=== PATIENT | female | born 1975 ===

== ENCOUNTER 2019-08-05 18:48 | Emergency (ER) | payer OTHER ==
[~2019-08-05] VITALS: Ht 152.4 cm; Wt 77.1 kg
[2019-08-05] MEDS ORDERED: Artificial Tear15 ML RIGHTEYE (21:24)
== END 2019-08-05 21:34 | disposition home or self-care (01) ==
LOC: ER 18:48
DX: H11.31 Conjunctival hemorrhage, right eye (principal)
CPT/HCPCS: 99282

== ENCOUNTER 2020-07-21 15:20 | Emergency (ER) | payer OTHER ==
[~2020-07-21] VITALS: Ht 165.1 cm; Wt 79.4 kg
[~2020-07-21 15:20] MED LIST: Artificial Tear15 ML RIGHTEYE
== END 2020-07-21 19:17 | disposition home or self-care (01) ==
LOC: ER 15:20 → EDBD 15:20 → ER 19:17
DX: S20.219A Contusion of unspecified front wall of thorax, initial encounter (principal); V59.50XA Passenger in pick-up truck or van injured in collision with unspecified motor vehicles in traffic accident, initial encounter; Y92.410 Unspecified street and highway as the place of occurrence of the external cause
CPT/HCPCS: 71046; 93005; 93010; 96372; 99284-25; J1885

== ENCOUNTER 2020-08-25 13:25 | Emergency (ER) | payer SELFPAY ==
[~2020-08-25] VITALS: Ht 157.5 cm; Wt 72.6 kg
[2020-08-25 14:20] LABS: BASOPHILS ABSOLUTE AUTO 0.04 K/mm3 (0.00-0.23); BASOPHILS PERCENT AUTO 0 % (0-2); EOSINOPHILS ABSOLUTE AUTO 0.17 K/mm3 (0.00-0.68); EOSINOPHILS PERCENT AUTO 1 % (0-6); Hematocrit 43.5 % (33.0-51.0); Hemoglobin 14.4 g/dL (11.5-16.0); IMMATURE GRAN ABSOLUTE AUTO 0.08 K/mm3 (0.00-0.10); IMMATURE GRAN PERCENT AUTO 1 % (0-1); LYMPHOCYTES ABSOLUTE AUTO 3.36 K/mm3 (0.84-5.20); LYMPHOCYTES PERCENT AUTO 28 % (21-46); MONOCYTES ABSOLUTE AUTO 0.88 K/mm3 (0.16-1.47); MONOCYTES PERCENT AUTO 7 % (4-13); Mean Corpuscular HGB 29.8 pg (26.0-34.0); Mean Corpuscular HGB Conc 33.1 g/dL (31.5-36.5); Mean Corpuscular Volume 90 fL (80-100); Mean Platelet Volume 9.3 fL (9.1-12.4); NEUTROPHILS ABSOLUTE AUTO 7.33 K/mm3 (1.96-9.15); NEUTROPHILS PERCENT AUTO 62 % (41-73); Platelet Count 287 K/mm3 (150-400); RDW Coefficient Variation 14.5 % (11.7-14.2); RDW Standard Deviation 47.7 fL (35.1-46.3); Red Blood Cell Count 4.84 M/mm3 (3.80-5.20); White Blood Cell Count 11.86 K/mm3 (4.00-11.30)
[2020-08-25 14:41] LABS: Alanine Aminotransfer (ALT/SGP 38 U/L (12-78); Albumin, Blood 3.4 g/dL (3.4-5.0); Albumin/Globulin Ratio 0.8 (0.8-1.8); Alk Phos 61 U/L (50-136); Anion Gap 5 mmol/L (6-16); Aspartate Aminotrans (AST/SGOT 20 U/L (12-37); Bilirubin, Total 0.3 mg/dL (0.1-1.0); Blood Urea Nitrogen 11 mg/dL (8-24); CO2, Blood 26 mmol/L (21-32); Calcium, Blood 8.6 mg/dL (8.5-10.1); Chloride, Blood 109 mmol/L (98-108); Creatinine, Blood 0.65 mg/dL (0.40-1.00); Glomerular Filtration Rate >60 (60-); Glucose, Blood 137 mg/dL (70-99); Potassium, Blood 3.8 mmol/L (3.5-5.5); Sodium, Blood 140 mmol/L (136-145); Total Protein, Blood 7.4 g/dL (6.4-8.2); Troponin I <0.015 ng/mL (0.000-0.040)
== END 2020-08-25 16:05 | disposition home or self-care (01) ==
LOC: ER 13:25
PROVIDERS: Physician Assistant
DX: R10.13 Epigastric pain (principal); R07.9 Chest pain, unspecified
CPT/HCPCS: 36415; 71046; 80053; 83690; 84484; 85025; 93005; 93010; 96374; 99285-25; A9270; A9270-GY

== ENCOUNTER 2021-02-14 23:00 | Emergency (ER) | payer OTHER ==
[~2021-02-14] VITALS: Ht 162.6 cm; Wt 88.5 kg
[2021-02-15] MEDS ORDERED: IBUP600 PO (00:01)
== END 2021-02-15 00:25 | disposition home or self-care (01) ==
LOC: EDBD 23:00 → ER 23:00
DX: S20.212A Contusion of left front wall of thorax, initial encounter (principal); S60.211A Contusion of right wrist, initial encounter; Y04.0XXA Assault by unarmed brawl or fight, initial encounter
CPT/HCPCS: 71046; 73100; 99283-25; A9270

== ENCOUNTER 2021-10-22 09:37 | Day surgery (SDC) | payer OTHER ==
[~2021-10-22] VITALS: Ht 165.1 cm; Wt 83.2 kg
[~2021-10-22 09:37] MED LIST changes: +IBUP600 PO
--- NOTE | 2021-10-22 11:48 | NUR ---
10/22/21 1148 VICKY SOUZA HEPARIN FLUSH AND NORMAL SALINE FLUSH USED BY DR. BROUSSARD TO CHECK FOR PATENCY OF MEDIPORT.
--- NOTE | 2021-10-22 13:10 | NUR ---
10/22/21 1310 HERBERT ROTHMAN MEDIMIGUEL PLACEMENT XRAY CONFIRMED BY DR. JEREZ 1300. END NOTE.
== END 2021-10-22 13:50 | disposition home or self-care (01) ==
LOC: ORSCSDS 09:37
PROVIDERS: Surgery
PROC: 05HN33Z Insertion of Infusion Device into Left Internal Jugular Vein, Percutaneous Approach (ICD-10-PCS; principal; 2021-10-22 11:00)
PROC: B544ZZA Ultrasonography of Left Jugular Veins, Guidance (ICD-10-PCS; principal; 2021-10-22 11:00)
DX: C50.411 Malignant neoplasm of upper-outer quadrant of right female breast (principal)
CPT/HCPCS: 77001; A9270; C1788; J0690; J1100; J1642; J2250; J2405; J2704; J3010; J7120

== ENCOUNTER 2022-08-06 07:36 | Observation (INO) | payer OTHER ==
[~2022-08-06] VITALS: Ht 157 cm; Wt 84.0 kg
--- NOTE | 2022-08-06 10:55 | NUR ---
Ambulatory in Day Surgery with Brown. History, Chart, Medications and Allergies reviewed before start of procedure with interpreteTALK on phone. Pre-Op teaching done. Pt verbalizes understanding and patient said that it's ok for to do interpretation with the doctors. Patient ride home has been arranged.
--- NOTE | 2022-08-06 14:01 | NUR ---
TOOKVER PATIENT CARE AFTER REPORT WAS RECEIVED.
--- NOTE | 2022-08-06 17:57 | NUR ---
Dressing to procedure site clean, dry, intact with no visible drainage, swelling, erythema or bruising noted. TIM DRAIN WITH MINIMAL DRAINAGE X2
--- NOTE | 2022-08-06 18:06 | NUR ---
PT AND DISCUSSED CARE OPTIONS, AND DECIDED THEY WOULD LIKE FOR NEHA TO STAY THE NIGHT TO HELP WITH PAIN CONTROL.
--- NOTE | 2022-08-06 18:08 | NUR ---
TRANSFER OF CARE TO AILYN ROBERTS
--- NOTE | 2022-08-06 18:51 | NUR ---
1840 arrived to room. awake alert, reports to staffing rn that pain to right chest is currently 8/10. pt grimacing. anderson drains x2 to right chest with both drains containing less than 10 ml of ss drainage. per staffing rn pts left to get prescriptions filled and will return to bedside-pt speaking per staffing rn
--- NOTE | 2022-08-07 06:36 | NUR ---
SHIFT SUMMARY: PODx1 R MASTECTOMY. CHEST BINDER AND GAUZE REMAIN IN PLACE. JPX2 DRAINS TO THE RIGHT CHEST REMAIN IN PLACE AND ARE DRAINING SEROSANG FLUID. PAIN WELL MANAGED T/O THE NIGHT WITH ORAL NORCO. PT AT BEDSIDE DURING PERIODS OF THE NIGHT. PT UP TO AMBULATE TO THE BR, TOLERATED WELL. PLANS TO POTENTIALLY DISCHARGE HOME TODAY. WILL GIVE REPORT TO DAY TIME RN.
--- NOTE | 2022-08-07 10:42 | NUR ---
DR. BROUSSARD IN ROOM AT ABOUT 0930, LORETTA WOUND VAC REMOVED TO ABD. INCISION IS CDI, WITH ANTONIA.
--- NOTE | 2022-08-07 10:45 | NUR ---
INCREASED RR: AT ABOUT 1015 THIS RN ROUNDED ON PT AND NOTED INCREASED RR COMPARED TO MORNING ASSESSMENT. RR IS 31, VS TAKEN AND WERE STABLE OTHERWISE. PT APPEARED MORE LETHARGIC AND SLOWER TO RESPOND THAN LAST ASSESSMENT. PT ORIENTED, REPORTED FEELING SLEEPY. PT ALSO REPORTED FEELING MORE SOB THAN NORMAL. PT HAD MILD INTERCOSTAL RETRACTIONS AND SLIGHT TRACHEAL RETRACTIONS. SP02 IS 95% ON 3L 02, WHICH IS PT BASELINE L FOR 02. LUNGS ARE CLEAR AND WHEEZY AT BASES. RT CALLED TO ROOM AND PT RECIEVED BREATHING TX, AFTER TREATMENT NO IMPROVEMENT IN [place]. SP02 REMAINED STABLE. PT DENIED HAVING INCREASED PAIN. CALLED AT 10:35, NO NEW ORDERS BUT MD PLANS TO SEE PT. AWAITING DR. WONG NOW.
--- NOTE | 2022-08-07 18:53 | NUR ---
SUMMARY: PT IS POD1 R MASTECTOMY. VSS, A/O, BULGARIAN SPEAKING BUT DOES UNDERSTAND SOME INDONESIAN. CEILING INSTALLER PHONE USED PRN. PT PAINFUL TODAY, ESPECIALLY WITH MOVEMENT. PT RATED PAIN 6/10 MOST OF THE DAY AND APPEARED TO BE IN ALOT OF PAIN. MEDICATED WITH 2 NARCO 5/325 Q4 AND [address] BROUSSARD MADE AWARE OF PT'S PAIN AND IS OK FOR DC TOMORROW. OTHERWISE PT STABLE, ABLE TO AMBULATE IN ROOM. PT IS VOIDING AND EATING. SURGICAL SITE WNL, WITH BREAST BINDER IN PLACE. SS DRAINAGE AT TIM DRAINS TOTAL OUTPUT. 40ML FOR EACH TIM THIS SHIFT. PT FAMILY AT BEDSIDE MOST OF TODAY. PLAN IS FOR PAIN MANAGEMENT TONIGHT AND DC TOMORROW.
--- NOTE | 2022-08-08 05:24 | NUR ---
SHIFT SUMMARY PT ALERT AND ORIENTED, NO ACUTE CHANGES. LITTLE BIT OF A LANGUAGE BARRIER, BUT IS ABLE TO ANSWER BASIC QUESTIONS. PT DID HAVE SOME NAUSEA ONCE, MEDICATED WITH ZOFRAN, NOT COMPLAINTS SINCE. INDEPENDENT TO BATHROOM. DRESSING C/D/I. TIM #1 40ML, TIM #2 25ML SS OUTPUT. CALL LIGHT WITHIN REACH.
[2022-08-08] MEDS ORDERED: HYDR1TAB94 PO (12:13)
--- NOTE | 2022-08-08 14:40 | NUR ---
DISCHARGE PT AND HER SPOUSE WERE PROVIDED WITH WRITTEN AND VERBAL DISCHARGE INSTRUCTIONS. PT AND SPOUSE DENIED NEED FOR THIS RN TO USE THE ADMISSIONS GATE ATTENDANT PHONE. BOTH PT AND HER VERBALIZED UNDERSTANDING. DRESSING SUPPLIES PROVIDED AND PT EDUCATED ABOUT DRESSING CHANGES. PT PROVIDED WITH EDUCATION ABOUT TIM DRAIN CARE. PT DISCHARGED AT APPROXIMATELY 1305.
== END 2022-08-08 13:05 | disposition home or self-care (01) ==
LOC: ORSCMMR 07:36 → SURS 07:37 → ORD 08:00 → ORSCMMR 08:00 → SURS 18:40 → ORSCMMR 08-07 22:56 → SURS 08-08 13:05
PROVIDERS: ADMIT Surgery
PROC: 0HTT0ZZ Resection of Right Breast, Open Approach (ICD-10-PCS; principal; 2022-08-06 11:15)
DX: C50.411 Malignant neoplasm of upper-outer quadrant of right female breast (principal); C50.911 Malignant neoplasm of unspecified site of right female breast
CPT/HCPCS: 94760; A9270; J0690; J1885; J2250; J2405; J3010; J7120

== ENCOUNTER 2024-05-03 05:44 | Emergency (ER) | payer OTHER ==
[~2024-05-03] VITALS: Ht 167.6 cm; Wt 86.2 kg
[~2024-05-03 05:44] MED LIST changes: +HYDR1TAB94 PO
[2024-05-03 06:43] LABS: BASOPHILS ABSOLUTE AUTO 0.03 K/mm3 (0.00-0.23); BASOPHILS PERCENT AUTO 1 % (0-2); EOSINOPHILS ABSOLUTE AUTO 0.09 K/mm3 (0.00-0.68); EOSINOPHILS PERCENT AUTO 2 % (0-6); Hematocrit 42.8 % (33.0-51.0); IMMATURE GRAN ABSOLUTE AUTO 0.01 K/mm3 (0.00-0.10); IMMATURE GRAN PERCENT AUTO 0 % (0-1); LYMPHOCYTES ABSOLUTE AUTO 1.51 K/mm3 (0.84-5.20); LYMPHOCYTES PERCENT AUTO 35 % (21-46); MONOCYTES ABSOLUTE AUTO 0.46 K/mm3 (0.16-1.47); MONOCYTES PERCENT AUTO 11 % (4-13); Mean Corpuscular HGB 30.3 pg (26.0-34.0); Mean Corpuscular HGB Conc 32.7 g/dL (31.5-36.5); Mean Corpuscular Volume 93 fL (80-100); Mean Platelet Volume 8.9 fL (9.1-12.4); NEUTROPHILS PERCENT AUTO 51 % (41-73); Platelet Count 211 K/mm3 (150-400); RDW Coefficient Variation 13.7 % (11.7-14.2); RDW Standard Deviation 46.8 fL (35.1-46.3); Red Blood Cell Count 4.62 M/mm3 (3.80-5.20)
[2024-05-03] MEDS ORDERED: Acetaminophen 325 MG TABLET PO ONE (07:05)
[2024-05-03 07:35] LABS: Albumin, Blood 3.3 g/dL (3.4-5.0); Albumin/Globulin Ratio 0.8 (0.8-1.8); Bilirubin, Total 0.3 mg/dL (0.1-1.0); Calcium, Blood 8.7 mg/dL (8.5-10.1); Creatinine, Blood 0.56 mg/dL (0.40-1.00); Globulin, Blood 3.9 g/dL (2.2-4.0); Potassium, Blood 3.7 mmol/L (3.5-5.5); Total Protein, Blood 7.2 g/dL (6.4-8.2)
[2024-05-03 10:58] VITALS: BP 131/85
[2024-05-03] MEDS ORDERED: RX Prepack 6 Tabs Oxycodone 5mg UD ONE (11:10)
[2024-05-03] MEDS ORDERED: OxyCODONE HCL 5 MG TAB PO ONE (11:10)
== END 2024-05-03 11:49 | disposition home or self-care (01) ==
LOC: ER 05:44
PROVIDERS: Emergency Medicine
DX: K85.90 Acute pancreatitis without necrosis or infection, unspecified (principal)
CPT/HCPCS: 71046; 76705; 80053; 83690; 84484; 85025; 93005; 93010; 99284-25; A9270